=== PATIENT | male | born 1955 | race Caucasian/White ===

== ENCOUNTER 2021-12-17 12:18 | Emergency (ER) | payer OTHER ==
[2021-12-17] MEDS ORDERED: NA CHLORIDE 0.9% 1,000 ML ONE ×2 (12:50→15:21)
[2021-12-17 13:03] LABS: Absolute Lymphocytes (CBC) 2.4 K/uL (0.7-4.9); Hematocrit 50.4 % (39.6-49.0); Lymphocytes % 25.3 % (15.3-44.8); RBC Red Blood Cell Count 4.99 M/uL (4.33-5.43)
[2021-12-17 13:04] LABS: Protime INR 1.01
[2021-12-17 13:20] LABS: Albumin 3.2 g/dL (3.4-5.0); Bilirubin Direct 0.1 mg/dL (0-0.2); Bilirubin Total 0.2 mg/dL (0.2-1.0); Magnesium 2.1 mg/dL (1.8-2.4); Potassium 3.9 mmol/L (3.5-5.1); Troponin High Sensitivity 5.6 pg/mL (<58.9)
--- NOTE | 2021-12-17 13:32 | RAD REPORT ---
EXAM DESCRIPTION: CT - Head C Spine Mpr Wo Con - 12/17/2021 1:10 pm CLINICAL HISTORY: Syncope. Head and neck injury status post fall. Head and neck pain COMPARISON: None. TECHNIQUE: Computed axial tomography of the head and cervical spine was obtained. Sagittal and coronal reconstruction was performed. All CT scans are performed using dose optimization technique as appropriate and may include automated exposure control or mA/KV adjustment according to patient size. FINDINGS: An intracranial bleed is not seen. The ventricles are normal in caliber. An extra-axial fl uid collection is not noted.Fluid within the visualized sinuses and mastoids is not seen A cervical fracture is not visualized. No dislocation is noted. Large osteophytes extend off of anter olateral aspect of cervical spine Loss of the normal lordosis may be secondary to muscle spasm IMPRESSION: No acute intracranial abnormality is seen. A cervical fracture is not visualized. If the patient continues to have symptoms to suggest intracra nial /spinal cord pathology then MRI would be recommended
--- NOTE | 2021-12-17 13:47 | RAD REPORT ---
EXAM DESCRIPTION: Charissa Single View12/17/2021 1:20 pm CLINICAL HISTORY: Chest pain COMPARISON: none FINDINGS: The lungs appear clear of acute infiltrate. The heart is normal size IMPRESSION: No acute abnormalities displayed
[2021-12-17 15:25] LABS: Urine Blood Trace-intact (Negative); Urine Glucose Negative (Negative); Urine Protein Negative (Negative); Urine Specific Gravity 1.015 (1.005-1.030)
[2021-12-17 15:41] LABS: Barbiturates NEGATIVE (NEGATIVE); Benzodiazepines NEGATIVE (NEGATIVE); Cocaine NEGATIVE (NEGATIVE); METHAMPHETAM NEGATIVE (NEGATIVE); Methadone NEGATIVE (NEGATIVE); Opiates NEGATIVE (NEGATIVE); Phencyclidine NEGATIVE (NEGATIVE); THC Cannibis NEGATIVE (NEGATIVE)
--- NOTE | 2021-12-17 16:02 | ER ---
Nurse's Notes [facility] Name: Soy Mcbride Age: 66 yrs Sex: Male : 1955 Arrival Date: 12/17/2021 Time: 12:20 Bed 5 Private MD: Diagnosis: Syncope Near;Fall on same level, unspecified;Contusion of unspecified part of head;Alcohol use, unspecified with intoxication;Dehydration Presentation: 12/17 12:54 Chief complaint: Patient states: pt presented to ED reporting passing out falling on [place] asphalt with LOC. Care prior to arrival: None. Mechanism of Injury: Fall. Trauma event details: Injury occurred: December 17, 2021. 12:54 Method Of Arrival: Wheelchair [place] 12:54 Acuity: JUDY 2 [place] 12:59 Coronavirus screen: Vaccine status: Patient reports receiving the 2nd dose of the covid [place] vaccine. Ebola Screen: Patient denies travel to an Ebola-affected area in the 21 days before illness onset. Initial Sepsis Screen: Does the patient meet any 2 criteria? No. Patient's initial sepsis screen is negative. Does the patient have a suspected source of infection? No. Patient's initial sepsis screen is negative. Risk Assessment: Do you want to hurt yourself or someone else? Patient reports no desire to harm self or others. Onset of symptoms was December 17, 2021. Triage Assessment: 12:58 General: Appears in no apparent distress. Behavior is calm, cooperative. [place] Trauma Activation: Consult Physician: ED Physician; Name: ; Notified At: ; Arrived At: Physician: General Surgeon; Name: ; Notified At: ; Arrived At: Physician: Radiology; Name: ; Notified At: ; Arrived At: Physician: Respiratory; Name: ; Notified At: ; Arrived At: Physician: Lab; Name: ; Notified At: ; Arrived At: Historical: - Allergies: 12:56 No Known Allergies; [place] - Home Meds: 13:01 Hydrochlorothiazide Oral [Active]; Verapamil Oral [Active]; ph - PMHx: 13:01 Hypertensive disorder; ph - Immunization history:: Adult Immunizations up to date. - Immunization history: Last tetanus immunization: unknown. - Social history:: Smoking status: . Screenin:56 Abuse screen: Denies threats or abuse. Denies injuries from another. Nutritional ro[place] screening: No deficits noted. Tuberculosis screening: No symptoms or risk factors identified. Fall Risk None identified. Primary Survey: 12:57 NO uncontrolled hemorrhage observed. A: The client is awake and alert. The airway is roth[place] patent. The client is alert. Airway: patent. Breathing/Chest: Spontaneous respiratory effort, equal unlabored respirations, breath sounds clear bilaterally, regular pattern, symmetrical chest rise and fall. Respiratory effort: spontaneous, unlabored. Circulation: No external hemorrhage present. Regular and strong central pulse, skin warm/dry/normal color. Disability Client is alert. Exposure/Environment: All clothing and personal items were removed. A warming method has been applied: A warm blanket has been provided to the patient. 12:59 Reassessment Alertness and Airway: Awake and alert. The airway is patent. Airway Patent ro[place] Breathing: Circulation: No external hemorrhage noted. Regular and strong central pulse, skin warm/dry/normal color. Disability: Pupils Pupils are equal, round, reactive to light and accomodation. Alert. Assessment: 12:56 Pain: Complains of pain in right arm and left arm. Neuro: No deficits noted. Level of [place] Consciousness is awake, obeys commands, Oriented to person, place, time, situation. Cardiovascular: Reports lightheadedness, syncope. Vital Signs: 12:35 BP 59 / 41; Pulse 92; Resp 18; Temp 96.8(TE); Pulse Ox 96% on R/A; Weight 104.33 kg; ph Height 5 ft. 10 in. (177.80 cm); 12:55 BP 75 / 56 Supine; Pulse 91; zm 12:55 BP 76 / 52 Sitting; Pulse 93; zm 13:11 BP 99 / 57; Pulse 87; Resp 17; Pulse Ox 100% on R/A; [place] 13:45 BP 110 / 64; Pulse 75; Resp 17; Pulse Ox 100% on R/A; [place] 15:08 BP 134 / 68; Pulse 86; Resp 17; Pulse Ox 97% on R/A; [place] 12:35 Body Mass Index 33.00 (104.33 kg, 177.80 cm) ph [place] Coma Score: 12:57 Eye Response: spontaneous(4). Verbal Response: oriented(5). Motor Response: obeys ro[place] commands(6). Total: 15. Trauma Score (Adult): 12:57 Eye Response: spontaneous(1); Verbal Response: oriented(1); Motor Response: obeys ro[place] commands(2); Systolic BP: 50 to 75 mm Hg(2); Respiratory Rate: 10 to 29 per min(4); [place] Score: 15; Trauma Score: 10 ED Course: 12:20 Patient arrived in ED. ds1 12:43 Carlos Garcia NP is PHCP. pm1 12:43 Edwin Gonzales MD is Attending Physician. pm1 12:49 Elsa Ivey RN is Primary Nurse. [place] 12:56 Triage completed. [place] 12:56 Patient has correct armband on for positive identification. Bed in low position. [place] 12:56 No provider procedures requiring assistance completed. Inserted saline lock: 20 gauge [place] in right antecubital area, using aseptic technique. 12:57 Patient maintains SpO2 saturation greater than 95% on room air. [place] 12:58 Arm band placed on. [place]th[place] 13:12 CT Head C Spine In Process Unspecified. EDMS 13:22 XRAY Chest (1 view) In Process Unspecified. EDMS 13:39 Call light in reach. Side rails up X 1. Door closed. Noise minimized. Warm blanket zm given. 16:46 IV discontinued, intact, Pressure dressing applied. [place] Administered Medications: 12:53 Drug: NS 0.9% 1000 ml Route: IV; Rate: 1000 ml; Site: right antecubital; [place] 15:30 Drug: NS 0.9% 1000 ml Route: IV; Rate: 1 bolus; Site: right antecubital; [place] Intake: 12:57 PO: 0ml; Total: 0ml. [place] Outcome: 16:02 Discharge ordered by . pm1 16:46 Discharged to home with friend. [place] 16:46 Condition: good 16:46 Discharge instructions given to patient. 16:48 Patient left the ED. [place] Signatures: Dispatcher [employer] EDIN Verito Noel ds1 Ayesha Osborne RN RN ph Marinas, Patrick, CHEMA BAR BACK pm1 Elsa Ivey RN RN ha Martinez, Zaina zm
--- NOTE | 2021-12-17 16:02 | EDPHYS ---
Physician Documentation [facility] Name: Soy Mcbride Age: 66 yrs Sex: Male : 1955 Arrival Date: 12/17/2021 Time: 12:20 Bed 5 Private MD: ED Physician Edwin Gonzales HPI: 12/17 12:46 This 66 yrs old Male presents to ER via Wheelchair with complaints of Fall Injury, pm1 Blurred Vision. 12:46 Details of fall: The patient fell from an upright position, while standing, and struck pm1 asphalt. Onset: The symptoms/episode began/occurred just prior to arrival. Associated injuries: The patient sustained injury to the head, contusion. Severity of symptoms: in the emergency department the symptoms are unchanged. The patient has not experienced similar symptoms in the past. The patient has not recently seen a physician. 66-year-old patient presents to the ER with complaints of near syncope with resulting fall. Patient was about to drink some beers with his friend standing behind their pickup truck when he felt faint and fell backwards. Patient with contusion to right parietal area. On the way to the hospital here, patient reports that he started to have blurry vision. Historical: - Allergies: 12:56 No Known Allergies; [place] - Home Meds: 13:01 Hydrochlorothiazide Oral [Active]; Verapamil Oral [Active]; ph - PMHx: 13:01 Hypertensive disorder; ph - Immunization history:: Adult Immunizations up to date. - Immunization history: Last tetanus immunization: unknown. - Social history:: Smoking status: . ROS: 12:46 Constitutional: Negative for fever, chills, and weight loss, Cardiovascular: Negative pm1 for chest pain, palpitations, and edema, Respiratory: Negative for shortness of breath, cough, wheezing, and pleuritic chest pain, Abdomen/GI: Negative for abdominal pain, nausea, vomiting, diarrhea, and constipation, Back: Negative for injury and pain, MS/Extremity: Negative for injury and deformity, Skin: Negative for injury, rash, and discoloration. 12:46 Eyes: Positive for blurry vision, Negative for Double vision. 12:46 Neuro: Positive for headache, near syncope, Negative for dizziness, loss of consciousness, weakness. 12:46 All other systems are negative. Exam: 12:46 Constitutional: This is a well developed, well nourished patient who is awake, alert, pm1 and in no acute distress. 12:46 Back: No spinal tenderness. No costovertebral tenderness. Full range of motion. Skin: Warm, dry with normal turgor. Normal color with no rashes, no lesions, and no evidence of cellulitis. MS/ Extremity: Pulses equal, no cyanosis. Neurovascular intact. Full, normal range of motion. 12:46 Head/face: Noted is no obvious of injury or deformity except contusion, that is superficial, of the right side of the back of head. 12:46 Eyes: Exam is negative for acute changes, Pupils: no acute changes, Extraocular movements: no acute changes, Conjunctiva: no acute changes, no injection. 12:46 ENT: Exam is negative for acute changes, Mouth: no acute changes, Lips: normal, moist, Oral mucosa: normal, pink and intact, moist. 12:46 Cardiovascular: Exam negative for acute changes, Rate: normal, Rhythm: regular, Pulses: Heart sounds: normal, Edema: is not appreciated. 12:46 Respiratory: Exam negative for acute changes, respiratory distress, shortness of breath, Breath sounds: are clear throughout. 12:46 Abdomen/GI: Inspection: abdomen appears normal, Palpation: abdomen is soft and non-tender, in all quadrants. 12:46 Neuro: Exam negative for acute changes, Orientation: is normal, Mentation: is normal, Motor: is normal, moves all fours. Vital Signs: 12:35 BP 59 / 41; Pulse 92; Resp 18; Temp 96.8(TE); Pulse Ox 96% on R/A; Weight 104.33 kg; ph Height 5 ft. 10 in. (177.80 cm); 12:55 BP 75 / 56 Supine; Pulse 91; zm 12:55 BP 76 / 52 Sitting; Pulse 93; zm 13:11 BP 99 / 57; Pulse 87; Resp 17; Pulse Ox 100% on R/A; [place] 13:45 BP 110 / 64; Pulse 75; Resp 17; Pulse Ox 100% on R/A; [place] 15:08 BP 134 / 68; Pulse 86; Resp 17; Pulse Ox 97% on R/A; [place] 12:35 Body Mass Index 33.00 (104.33 kg, 177.80 cm) ph [place] Coma Score: 12:57 Eye Response: spontaneous(4). Verbal Response: oriented(5). Motor Response: obeys ro[place] commands(6). Total: 15. Trauma Score (Adult): 12:57 Eye Response: spontaneous(1); Verbal Response: oriented(1); Motor Response: obeys [place] commands(2); Systolic BP: 50 to 75 mm Hg(2); Respiratory Rate: 10 to 29 per min(4); [place] Score: 15; Trauma Score: 10 MDM: 12:43 Patient medically screened. [facility] 15:52 Data reviewed: vital signs. Data interpreted: Pulse oximetry: on room air is 97 %. pm1 Interpretation: normal. Counseling: I had a detailed discussion with the patient and/or guardian regarding: the historical points, exam findings, and any diagnostic results supporting the discharge/admit diagnosis, lab results, radiology results, the need for outpatient follow up, to return to the emergency department if symptoms worsen or persist or if there are any questions or concerns that arise at home. 12/17 12:46 Order name: Basic Metabolic Panel; Complete Time: 13:27 pm1 12/17 12:46 Order name: CBC with Diff; Complete Time: 13:11 pm1 12/17 12:46 Order name: LFT's; Complete Time: 13:27 pm1 12/17 12:46 Order name: Magnesium; Complete Time: 13:27 pm1 12/17 12:46 Order name: NT PRO-BNP; Complete Time: 13:27 pm1 12/17 12:46 Order name: PT-INR; Complete Time: 13:11 pm1 12/17 12:46 Order name: CT Head C Spine; Complete Time: 13:36 pm1 12/17 12:46 Order name: Troponin HS; Complete Time: 13:27 pm1 12/17 12:46 Order name: XRAY Chest (1 view); Complete Time: 13:49 pm1 12/17 13:01 Order name: ETOH Level; Complete Time: 13:46 pm1 12/17 13:01 Order name: UDS; Complete Time: 15:43 pm1 12/17 15:25 Order name: Urine Dipstick-Ancillary; Complete Time: 15:25 EDMS 12/17 12:46 Order name: Cardiac monitoring; Complete Time: 12:50 pm1 05/08 12:46 Order name: EKG - Nurse/Tech; Complete Time: 12:50 pm1 12/17 12:46 Order name: IV Saline Lock; Complete Time: 12:50 pm1 12/17 12:46 Order name: Labs collected and sent; Complete Time: 12:50 pm1 12/17 12:46 Order name: O2 Per Protocol; Complete Time: 12:50 pm1 12/17 12:46 Order name: O2 Sat Monitoring; Complete Time: 12:53 pm1 12/17 12:46 Order name: Orthostatic Blood Pressure; Complete Time: 13:02 pm1 Administered Medications: 12:53 Drug: NS 0.9% 1000 ml Route: IV; Rate: 1000 ml; Site: right antecubital; [place] 15:30 Drug: NS 0.9% 1000 ml Route: IV; Rate: 1 bolus; Site: right antecubital; [place] Disposition Summary: 12/17/21 16:02 Discharge Ordered Location: Home pm1 Problem: new pm1 Symptoms: have improved pm1 Condition: Stable pm1 Diagnosis - Syncope Near pm1 - Fall on same level, unspecified pm1 - Contusion of unspecified part of head pm1 - Alcohol use, unspecified with intoxication pm1 - Dehydration pm1 Followup: pm1 - With: Emergency Department - When: As needed - Reason: Worsening of condition Followup: pm1 - With: Private Physician - When: 2 - 3 days - Reason: Recheck today's complaints, Continuance of care, Re-evaluation by your physician Discharge Instructions: - Discharge Summary Sheet pm1 - Alcohol Intoxication pm1 - Dehydration, Adult pm1 - Near-Syncope pm1 - Rehydration, Adult pm1 Forms: - Medication Reconciliation Form pm1 - Thank You Letter pm1 - Antibiotic Education pm1 - Prescription Opioid Use pm1 Signatures: Dispatcher [employer] Edwin Khalil MD MD cha Hall, Patricia, RN RN ph Marinas, Patrick, NP SHANK BONER pm1 Camila-Elsa Barron RN RN [place]
[2021-12-17 16:52] VITALS: TEMP 96.8
[2021-12-17 16:57] VITALS: BP 134/68; O2SAT 97
--- NOTE | 2021-12-18 08:58 | EKG ---
Test Date: 2021-12-17 Test Time: 12:48:36 Athletic Events Scorer: MARCO A MEASUREMENT RESULTS: Intervals: Rate: 90 FL: 188 QRSD: 84 QT: 372 QTc: 455 [place]: P: -3 FL: 188 QRS: 5 T: 39 INTERPRETIVE STATEMENTS: Normal sinus rhythm Normal ECG Compared to ECG 01/27/2001 15:21:00 No significant changes Electronically Signed On 12-18-21 08:56:25 CDT by Ulysses Rapp
== END 2021-12-17 16:48 | disposition home or self-care (01) ==
LOC: ER 12:18
DX: R55 Syncope and collapse (principal); S00.83XA Contusion of other part of head, initial encounter; E86.0 Dehydration; F10.929 Alcohol use, unspecified with intoxication, unspecified; H53.8 Other visual disturbances; W18.30XA Fall on same level, unspecified, initial encounter; I10 Essential (primary) hypertension
CPT/HCPCS: 93005; 85025; 80048; 36415; 80320; 83735; 85610; 80076; 81003; 84484; 83880; 80307; 70450; 72125; 71045; 99284; J7030 ×2

== ENCOUNTER → 2025-05-31 | Day surgery (SDC) | payer OTHER ==
--- NOTE | 2025-05-31 10:53 | RAD REPORT ---
ULTRASOUND-GUIDED SOFT TISSUE CORE BIOPSY PROCEDURE OF THE NECK PREPROCEDURE DIAGNOSIS: Left neck soft tissue mass.. R22.1, D48.7 PROCEDURE: Core biopsy procedure 18-gauge left neck. SPECIMEN: 3 x 18 gauge core biopsies of left neck mass. TECHNIQUE: Prior to the procedure , the risks and benefits of a core biopsy procedure were explained with the pa tient which consented fully to the procedure. Real-time ultrasound was used to identify the left neck mass of interest. The neck was then prepped a nd draped in the usual sterile fashion. Lidocaine was used to anesthetize the skin and soft tissues down towards the thyroid nodule. 17-gauge introducer needle was placed under ultrasound guidance into the mass. After this, 3 18-gauge 20 mm throw core biopsies were performed through the lesion. All collected material was submitted to pathol jadon. The patient tolerated the procedure well without immediate post procedure complication. IMPRESSION: Technically successful ultrasound-guided core biopsy procedure left neck mass.
== END ==
LOC: FNA 08:33
PROVIDERS: ATTEND Nurse Practitioner Family
PROC: 0JB53ZX Excision of Left Neck Subcutaneous Tissue and Fascia, Percutaneous Approach, Diagnostic (ICD-10-PCS; principal; 2025-05-31)
DX: C49.0 Malignant neoplasm of connective and soft tissue of head, face and neck (principal)
CPT/HCPCS: 88305